=== PATIENT | female | born 1965 | race Caucasian/White ===

== ENCOUNTER 2021-07-09 13:10 | Inpatient (IN) | payer OTHER ==
[~2021-07-09] VITALS: Ht 165.1 cm; Wt 77.1 kg
[2021-07-09] MEDS ORDERED: ONDANSETRON HCL INJ 2MG/ML 2ML 2 MG/ML VIAL IV STA (14:30)
[2021-07-09] MEDS ORDERED: SODIUM CHLORIDE 0.9% 1000ML 1,000 ML IV STA ×3 (14:30→15:09)
[2021-07-09] MEDS ORDERED: SODIUM CHLORIDE 0.9% 1000ML 2,000 ML ONE (14:35)
[2021-07-09] MEDS ORDERED: ONDANSETRON HCL INJ 2MG/ML 2ML 2 MG/ML VIAL ONE (14:35)
[2021-07-09] MEDS ORDERED: INSULIN REGULAR, HUMAN 100 UNIT/1 ML ONE (14:35)
[2021-07-09] MEDS ORDERED: INSULIN REGULAR, HUMAN 100 UNIT/1 ML IV ONE (14:45)
[2021-07-09] MEDS ORDERED: DEXTROSE 50% SYRINGE 50 ML IV PRN (15:15)
[2021-07-09] MEDS ORDERED: CEFTRIAXONE 1 GM in SODIUM CHLORIDE 0.9% 50ML 50 ML IV ONE (15:15)
[2021-07-09] MEDS ORDERED: SODIUM CHLORIDE FLUSH 10 ML SYR INJ PRN (15:15)
[2021-07-09] MEDS ORDERED: CEFTRIAXONE 1 GM VIAL ONE (15:19)
[2021-07-09 18:04] VITALS: BP 101/67
[2021-07-09 18:07] VITALS: BP 101/67
[2021-07-09 18:08] VITALS: BP 101/67
[2021-07-09] MEDS: INSULIN REGULAR, HUMAN 3ML VL 100 UNIT in SODIUM CHLORIDE 0.9% 100 ML IV SCH ×2 (19:22)
[2021-07-09] MEDS: ACETAMINOPHEN 325 MG TAB PO PRN (19:46)
[2021-07-09] MEDS: ONDANSETRON HCL INJ 2MG/ML 2ML 2 MG/ML VIAL IV PRN (19:46)
[2021-07-09] MEDS ORDERED: DEXTROSE 5%/0.45% SOD CHL 1,000 ML IV ONE (20:15)
[2021-07-09 21:00] VITALS: BP 104/55
[2021-07-09 21:06] VITALS: BP 104/55
[2021-07-10 00:29] VITALS: BP 86/61
[2021-07-10] MEDS ORDERED: BENZONATATE 100 MG CAP PO PRN (01:45)
[2021-07-10] MEDS ORDERED: DIPHENHYDRAMINE HCL 25 MG CAP PO PRN (01:45)
[2021-07-10] MEDS ORDERED: LIDOCAINE 4% PATCH TP PRN (01:45)
[2021-07-10] MEDS ORDERED: MELATONIN 5 MG TABLET PO PRN (01:45)
[2021-07-10] MEDS ORDERED: SIMETHICONE 80 MG CHEW PO PRN (01:45)
[2021-07-10] MEDS ORDERED: ALBUTEROL/IPRATROPIUM 3 ML NEB NEB PRN (01:45)
[2021-07-10] MEDS ORDERED: DOCUSATE SODIUM 100 MG CAP PO PRN (01:45)
[2021-07-10] MEDS ORDERED: HYDRALAZINE HCL 20 MG/ML VIAL IV PRN (01:45)
[2021-07-10] MEDS ORDERED: POTASSIUM CHLORIDE 20 MEQ TAB CR PO PRN (01:45)
[2021-07-10 04:00] VITALS: BP 86/55
[2021-07-10 06:51] LABS: BASOPHILS # (AUTO) 0.1 (0.0-0.1); BASOPHILS % 0.8 % (0.0-1.0); EOSINOPHILS # (AUTO) 0.1 (0.0-0.4); EOSINOPHILS % 0.6 % (0.0-6.0); HEMATOCRIT 28.5 % (34.2-44.1); HEMOGLOBIN 9.1 g/dL (12.0-16.0); LYMPHOCYTES # (AUTO) 3.3 (1.0-3.2); LYMPHOCYTES % 19.4 % (18.0-39.1); MEAN CORPUSCULAR HEMOGLOBIN 28.2 pg (28-32); MEAN CORPUSCULAR HGB CONC 31.9 g/dL (31-35); MEAN CORPUSCULAR VOLUME 88.2 fL (81-99); MONOCYTES # (AUTO) 1.9 (0.2-0.8); MONOCYTES % 10.9 % (4.4-11.3); NEUTROPHILS # (AUTO) 11.5 (2.1-6.9); NEUTROPHILS % 67.8 % (38.7-80.0); PLATELET COUNT 401 x10e3/uL (140-360); RED BLOOD COUNT 3.23 x10e6/uL (3.6-5.1); RED CELL DISTRIBUTION WIDTH 12.5 % (11.7-14.4)
[2021-07-10 07:33] LABS: ANION GAP 9.8 mmol/L (8-16); CREATININE, SERUM 0.83 mg/dL (0.57-1.11); POTASSIUM 3.8 mmol/L (3.5-5.1)
[2021-07-10 07:42] VITALS: BP 92/64
[2021-07-10] MEDS: PANTOPRAZOLE SOD 40 MG TABEC PO SCH (07:42)
[2021-07-10] MEDS: ACETAMINOPHEN 325 MG TAB PO PRN ×2 (07:43→23:40)
[2021-07-10 07:51] LABS: CALCIUM 8.8 mg/dL (8.4-10.2)
[2021-07-10 12:00] VITALS: BP 101/69
[2021-07-10] MEDS: INSULIN REGULAR, HUMAN 3ML VL 100 UNIT in SODIUM CHLORIDE 0.9% 100 ML IV SCH ×2 (13:07)
[2021-07-10] MEDS: DEXTROSE 50% SYRINGE 50 ML IV PRN (14:34)
[2021-07-10] MEDS: Vancomycin IV 1 GM in SODIUM CHLORIDE 0.9% 250ML 250 ML IV SCH (17:11)
[2021-07-10] MEDS: DEXTROSE 5%/0.45% SOD CHL 1,000 ML IV SCH (17:11)
[2021-07-10] MEDS: ENOXAPARIN SOD INJ 40 MG/0.4 ML SYR SC SCH (17:11)
[2021-07-10] MEDS: INSULIN LISPRO 100 UNIT/1 ML 3ML VIAL SQ SCH ×3 (17:11→21:24)
[2021-07-10] MEDS: INSULIN GLARGINE 100 UNITS/ML VIAL SQ SCH (17:12)
[2021-07-10 20:00] VITALS: BP 105/65
[2021-07-10 22:00] VITALS: BP 115/66
[2021-07-11] VITALS (12 sets, daily range): BP systolic 96–123; BP diastolic 60–77
[2021-07-11] MEDS: DEXTROSE 5%/0.45% SOD CHL 1,000 ML IV SCH (04:40)
[2021-07-11] MEDS: Vancomycin IV 1 GM in SODIUM CHLORIDE 0.9% 250ML 250 ML IV SCH ×2 (04:40→16:05)
[2021-07-11] MEDS: PANTOPRAZOLE SOD 40 MG TABEC PO SCH (07:52)
[2021-07-11] MEDS: ONDANSETRON HCL INJ 2MG/ML 2ML 2 MG/ML VIAL IV PRN (08:00)
[2021-07-11] MEDS: INSULIN LISPRO 100 UNIT/1 ML 3ML VIAL SQ SCH ×7 (08:39→21:00)
[2021-07-11] MEDS: INSULIN GLARGINE 100 UNITS/ML VIAL SQ SCH (08:39)
[2021-07-11 09:27] LABS: BASOPHILS # (AUTO) 0.1 (0.0-0.1); EOSINOPHILS # (AUTO) 0.2 (0.0-0.4); EOSINOPHILS % 1.7 % (0.0-6.0); HEMATOCRIT 31.5 % (34.2-44.1); HEMOGLOBIN 10.1 g/dL (12.0-16.0); LYMPHOCYTES # (AUTO) 1.3 (1.0-3.2); LYMPHOCYTES % 9.8 % (18.0-39.1); MEAN CORPUSCULAR HEMOGLOBIN 28.2 pg (28-32); MEAN CORPUSCULAR HGB CONC 32.1 g/dL (31-35); MONOCYTES # (AUTO) 0.5 (0.2-0.8); MONOCYTES % 3.9 % (4.4-11.3); NEUTROPHILS # (AUTO) 10.9 (2.1-6.9); NEUTROPHILS % 82.6 % (38.7-80.0); PLATELET COUNT 375 x10e3/uL (140-360); RED BLOOD COUNT 3.58 x10e6/uL (3.6-5.1)
[2021-07-11 10:37] LABS: ANION GAP 19.2 mmol/L (8-16); CALCIUM 8.8 mg/dL (8.4-10.2); CREATININE, SERUM 0.8 mg/dL (0.57-1.11); POTASSIUM 3.2 mmol/L (3.5-5.1)
[2021-07-11] MEDS: SODIUM CHLORIDE 0.9% 1000ML 1,000 ML IV SCH (14:34)
[2021-07-11] MEDS: ENOXAPARIN SOD INJ 40 MG/0.4 ML SYR SC SCH (16:05)
[2021-07-11] MEDS: METOPROLOL TARTRATE 25 MG TAB PO SCH (16:05)
[2021-07-11] MEDS ORDERED: POTASSIUM CHLORIDE 20 MEQ TAB CR PO STA (19:41)
[2021-07-11 20:31] LABS: ANION GAP 8.4 mmol/L (8-16); CALCIUM 8.9 mg/dL (8.4-10.2); CREATININE, SERUM 0.71 mg/dL (0.57-1.11); POTASSIUM 3.4 mmol/L (3.5-5.1)
[2021-07-11] MEDS ORDERED: INSULIN GLARGINE 100 UNITS/ML VIAL SQ SCH (21:00)
[2021-07-11] MEDS: ATORVASTATIN 40 MG TAB PO SCH (21:04)
[2021-07-11] MEDS: ACETAMINOPHEN 325 MG TAB PO PRN (22:00)
[2021-07-12] VITALS (10 sets, daily range): BP systolic 94–131; BP diastolic 52–92
[2021-07-12] MEDS: SODIUM CHLORIDE 0.9% 1000ML 1,000 ML IV SCH ×2 (02:10→19:44)
[2021-07-12] MEDS: Vancomycin IV 1 GM in SODIUM CHLORIDE 0.9% 250ML 250 ML IV SCH (04:50)
[2021-07-12] MEDS: LEVOTHYROXINE SODIUM 125 MCG TAB PO SCH (05:27)
[2021-07-12] MEDS: ACETAMINOPHEN 325 MG TAB PO PRN (05:28)
[2021-07-12 05:47] LABS: BASOPHILS # (AUTO) 0.1 (0.0-0.1); BASOPHILS % 1.5 % (0.0-1.0); EOSINOPHILS # (AUTO) 0.4 (0.0-0.4); EOSINOPHILS % 5.3 % (0.0-6.0); HEMATOCRIT 28.5 % (34.2-44.1); HEMOGLOBIN 9.4 g/dL (12.0-16.0); LYMPHOCYTES # (AUTO) 2.8 (1.0-3.2); LYMPHOCYTES % 40.9 % (18.0-39.1); MEAN CORPUSCULAR HEMOGLOBIN 28.7 pg (28-32); MEAN CORPUSCULAR VOLUME 86.9 fL (81-99); MONOCYTES # (AUTO) 0.7 (0.2-0.8); MONOCYTES % 9.8 % (4.4-11.3); NEUTROPHILS # (AUTO) 2.9 (2.1-6.9); NEUTROPHILS % 42.2 % (38.7-80.0); PLATELET COUNT 363 x10e3/uL (140-360); RED BLOOD COUNT 3.28 x10e6/uL (3.6-5.1); RED CELL DISTRIBUTION WIDTH 13.1 % (11.7-14.4)
[2021-07-12 06:08] LABS: ALBUMIN 2.6 g/dL (3.5-5.0); ALBUMIN/GLOBULIN RATIO 0.9 (0.8-2.0); CALCIUM 8.7 mg/dL (8.4-10.2); CREATININE, SERUM 0.65 mg/dL (0.57-1.11)
[2021-07-12 06:30] LABS: THYROID STIMULATING HORMONE 0.706 uIU/mL (0.350-4.940)
[2021-07-12] MEDS: ONDANSETRON HCL INJ 2MG/ML 2ML 2 MG/ML VIAL IV PRN (06:35)
[2021-07-12] MEDS: INSULIN LISPRO 100 UNIT/1 ML 3ML VIAL SQ SCH ×7 (07:30→21:49)
[2021-07-12] MEDS: METOPROLOL TARTRATE 25 MG TAB PO SCH ×2 (09:00→20:07)
[2021-07-12] MEDS: ASPIRIN 81 MG ENTERIC COATED PO SCH (09:09)
[2021-07-12] MEDS: CLOPIDOGREL BISULFATE 75 MG TAB PO SCH (09:09)
[2021-07-12] MEDS: INSULIN GLARGINE 100 UNITS/ML VIAL SQ SCH ×3 (09:14→21:49)
[2021-07-12] MEDS: ENOXAPARIN SOD INJ 40 MG/0.4 ML SYR SC SCH (20:08)
[2021-07-12] MEDS: ATORVASTATIN 40 MG TAB PO SCH (21:36)
[2021-07-12] MEDS: GABAPENTIN 400 MG CAP PO SCH (21:36)
[2021-07-13] VITALS (7 sets, daily range): BP systolic 110–139; BP diastolic 62–77
[2021-07-13] MEDS: LEVOTHYROXINE SODIUM 125 MCG TAB PO SCH (06:00)
[2021-07-13 06:41] LABS: BASOPHILS # (AUTO) 0.1 (0.0-0.1); BASOPHILS % 1.8 % (0.0-1.0); EOSINOPHILS # (AUTO) 0.3 (0.0-0.4); EOSINOPHILS % 5.5 % (0.0-6.0); HEMATOCRIT 31.1 % (34.2-44.1); HEMOGLOBIN 9.9 g/dL (12.0-16.0); LYMPHOCYTES # (AUTO) 2.3 (1.0-3.2); LYMPHOCYTES % 37.4 % (18.0-39.1); MEAN CORPUSCULAR HEMOGLOBIN 28.7 pg (28-32); MEAN CORPUSCULAR HGB CONC 31.8 g/dL (31-35); MEAN CORPUSCULAR VOLUME 90.1 fL (81-99); MONOCYTES # (AUTO) 0.6 (0.2-0.8); MONOCYTES % 9.2 % (4.4-11.3); NEUTROPHILS # (AUTO) 2.8 (2.1-6.9); NEUTROPHILS % 45.6 % (38.7-80.0); PLATELET COUNT 371 x10e3/uL (140-360); RED BLOOD COUNT 3.45 x10e6/uL (3.6-5.1); RED CELL DISTRIBUTION WIDTH 13.4 % (11.7-14.4)
[2021-07-13 06:56] LABS: ANION GAP 10.4 mmol/L (8-16); CALCIUM 8.6 mg/dL (8.4-10.2); CREATININE, SERUM 0.57 mg/dL (0.57-1.11); MAGNESIUM 1.7 MG/DL (1.3-2.1); POTASSIUM 3.4 mmol/L (3.5-5.1)
[2021-07-13] MEDS: INSULIN LISPRO 100 UNIT/1 ML 3ML VIAL SQ SCH ×6 (07:30→21:37)
[2021-07-13] MEDS: DEXTROSE 50% SYRINGE 50 ML IV PRN (07:38)
[2021-07-13] MEDS: ASPIRIN 81 MG ENTERIC COATED PO SCH (08:37)
[2021-07-13] MEDS: CLOPIDOGREL BISULFATE 75 MG TAB PO SCH (08:37)
[2021-07-13] MEDS: GABAPENTIN 400 MG CAP PO SCH ×3 (08:37→21:00)
[2021-07-13] MEDS: METOPROLOL TARTRATE 25 MG TAB PO SCH ×2 (08:37→16:09)
[2021-07-13] MEDS: INSULIN GLARGINE 100 UNITS/ML VIAL SQ SCH ×2 (08:38→21:35)
[2021-07-13] MEDS ORDERED: POTASSIUM CHLORIDE 20 MEQ TAB CR PO ONE (11:30)
[2021-07-13] MEDS ORDERED: POTASSIUM CHLORIDE 20MEQ/100ML 100 ML IV ONE (11:30)
[2021-07-13] MEDS ORDERED: IRON SUCROSE 100 MG in SODIUM CHLORIDE 0.9% 100 ML 100 ML IV SCH (12:00)
[2021-07-13] MEDS ORDERED: POVIDONE IODINE 0.05% 0.05 % ML PO ONE (13:13)
[2021-07-13] MEDS ORDERED: DEXAMETHASONE SOD PHOS INJ 4 MG/ML SDV ONE (13:13)
[2021-07-13] MEDS ORDERED: SEVOFLURANE INHAL SOLN 250 ML PEN BTL ONE (13:13)
[2021-07-13] MEDS ORDERED: ONDANSETRON HCL INJ 2MG/ML 2ML 2 MG/ML VIAL ONE (13:13)
[2021-07-13] MEDS ORDERED: PROPOFOL IV EMULSION 10 MG/ML 20 ML VIAL ONE (13:13)
[2021-07-13] MEDS ORDERED: LIDOCAINE HCL 2% LOCAL INJ 5 ML SDV VIAL INJ ONE (13:13)
[2021-07-13] MEDS ORDERED: MIDAZOLAM HCL 2 MG/2 ML VIAL ONE (13:18)
[2021-07-13] MEDS ORDERED: FENTANYL CITRATE/PF 100MCG/2 ML INJ ONE (13:18)
[2021-07-13] MEDS ORDERED: HYDROCODONE/APAP 5MG-325MG TAB PO PRN (14:45)
[2021-07-13] MEDS ORDERED: ONDANSETRON HCL INJ 2MG/ML 2ML 2 MG/ML VIAL IV PRN (14:45)
[2021-07-13] MEDS ORDERED: SODIUM CHLORIDE 0.9% 1000ML 1,000 ML IV SCH (14:45)
[2021-07-13] MEDS ORDERED: BUPIVACAINE HCL 0.5% INJ 30 ML VIAL INJ ONE (14:47)
[2021-07-13] MEDS ORDERED: Vancomycin IV 1 GM in SODIUM CHLORIDE 0.9% 250ML 250 ML IV SCH (15:00)
[2021-07-13] MEDS ORDERED: LEVOTHYROXINE50 MCG PO (20:33)
[2021-07-13] MEDS ORDERED: LISINOPRIL5 MG PO (20:33)
[2021-07-13] MEDS ORDERED: NEURONTIN400 MG PO (20:33)
[2021-07-13] MEDS ORDERED: PLAVIX75 MG PO (20:33)
[2021-07-13] MEDS ORDERED: BACTRIM DS TAB1 EACH PO (20:39)
[2021-07-13] MEDS ORDERED: HYDROCODON-ACE1 EA11 PO (20:41)
[2021-07-13] MEDS: ATORVASTATIN 40 MG TAB PO SCH (21:00)
== END 2021-07-13 21:18 | disposition home or self-care (01) | DRG 570 ==
LOC: FSED 13:31 → ERHOLD 15:07 → IMCU 17:12 → MED/SURG3 07-12 14:29
PROVIDERS: ADMIT Internal Medicine; ATTEND Internal Medicine
PROC: 0JBL0ZZ Excision of Right Upper Leg Subcutaneous Tissue and Fascia, Open Approach (ICD-10-PCS; principal; 2021-07-13 12:00)
DX: L02.415 Cutaneous abscess of right lower limb (principal); E10.10 Type 1 diabetes mellitus with ketoacidosis without coma; I88.9 Nonspecific lymphadenitis, unspecified; E03.9 Hypothyroidism, unspecified; I25.10 Atherosclerotic heart disease of native coronary artery without angina pectoris; E10.42 Type 1 diabetes mellitus with diabetic polyneuropathy; D50.9 Iron deficiency anemia, unspecified; I10 Essential (primary) hypertension; I25.2 Old myocardial infarction; Z79.4 Long term (current) use of insulin; Z95.5 Presence of coronary angioplasty implant and graft; Z88.5 Allergy status to narcotic agent; Z20.822 Contact with and (suspected) exposure to COVID-19; Z82.49 Family history of ischemic heart disease and other diseases of the circulatory system; Z83.3 Family history of diabetes mellitus
CPT/HCPCS: 36415; 71046; 80048; 80053; 80202; 81003; 82553; 82948; 83036; 83540; 83735; 84443; 84466; 84484; 85025; 87071; 87075; 87205; 88304; 93005; 93306; 94799; 96360; 96365; 96374; 96375; 96376; 99284; J0696; J1100; J1650; J1756; J1815; J1817; J2001; J2250; J2405; J3010; J3370; J3480; J7030; J7050; J7799; U0002